=== PATIENT | female | born 1955 | race Hispanic/Latino ===

== ENCOUNTER 2018-06-07 18:53 | Emergency (ER) | payer OTHER ==
[~2018-06-07] VITALS: Ht 165.1 cm; Wt 73.5 kg
--- OUTSIDE RECORDS SUMMARY | 2018-06-07 18:55 | XMS REPORT | Clinical Summary ---
Author Author [facility] Address Unknown Phone Unavailable Care Team Providers Care Engine Inspector Name Role Phone Isaura Hobbs MD PCP Allergies Comments Active Allergy Reactions Severity Noted Date Cortisone Itching 04/05/2015 Morphine Swelling 04/05/2015 Penicillins Swelling 04/05/2015 Steroids Swelling 04/05/2015 Medications End Date Status Medication Sig Dispensed Refills Start Date Active albuterol HFA (VENTOLIN Inhale 1 puff 0 HFA) 90 mcg/actuation by mouth via inhaler inhaler every 6 (six) hours as needed for Wheezing. Active metFORMIN (GLUCOPHAGE) Take 500 mg 0 500 MG tablet by mouth 2 (two) times daily with breakfast and dinner. Active oxybutynin (DITROPAN XL) Take 10 mg by 0 10 MG 24 hr tablet mouth as needed . Active simvastatin (ZOCOR) 20 MG Take 20 mg by 0 tablet mouth nightly. Active traMADol (ULTRAM) 50 mg Take 50 mg by 0 tablet mouth every 6 (six) hours as needed for Pain. Active Problems Problem Noted Date Breast cancer, left 04/11/2015 Breast cancer 04/11/2015 Encounters Care Team Description Date Type Specialty Lyn Conti Lumbar radiculopathy (Primary Dx); Personal history of surgery to heart and great vessels, presenting hazards to health 04/29/2018 Outside Orders Radiology after 06/06/2017 Social History Date Tobacco Use Types Packs/Day Years Used Quit: 04/05/2010 Former Smoker 0.25 40 Smokeless Tobacco: Never Used Comments: quit smoking 5 yrs ago Alcohol Use Drinks/Week oz/Week Comments No Sex Assigned at Date Recorded Not on file Industry Job Start Date Occupation Not on file Not on file Not on file Travel End Travel History Travel Start No recent travel history available. Last Filed Vital Signs Not on file Plan of Treatment Not on file Results Not on fileafter 06/06/2017 Insurance Payer Benefit Subscriber ID Type Phone Address Plan / Group [employer] - [employer] C[employer] [facility] xxxxxxxxxxx HMO/POS NETWORK Advance Directives For more information, please contact: [facility] [address] [place] [address] Date Inactivated Comments Code Status Date Activated 08/28/2015 9:54 PM Full Code 08/28/2015 5:32 PM This code status was determined by: Patient 04/11/2015 7:00 PM Full Code 04/11/2015 11:40 AM This code status was determined by: Patient
[2018-06-07] MEDS ORDERED: KETOROLAC TROMETHAMINE 30 MG/ML VIAL IM ONE (21:00)
[2018-06-07] MEDS ORDERED: ORPHENADRINE CITRATE 30 MG/ML VIAL IM ONE (21:00)
[2018-06-07] MEDS ORDERED: KETOROLAC TROMETHAMINE 60 MG/2 ML VIAL ONE (21:06)
[2018-06-07] MEDS ORDERED: ORPHENADRINE CITRATE 30 MG/ML VIAL ONE (21:07)
[2018-06-07] MEDS ORDERED: KETOROLAC TROMETHAMINE 60 MG/2 ML VIAL IM ONE (21:15)
[2018-06-07 22:03] VITALS: BP 162/89
== END 2018-06-07 22:30 | disposition home or self-care (01) ==
LOC: ER 18:53
DX: M54.5 Low back pain (principal); S39.012A Strain of muscle, fascia and tendon of lower back, initial encounter; G89.29 Other chronic pain; E11.9 Type 2 diabetes mellitus without complications; F32.9 Major depressive disorder, single episode, unspecified; Z85.3 Personal history of malignant neoplasm of breast
CPT/HCPCS: 99283; J1885; J2360